=== PATIENT | male | born 1980 | race Caucasian/White ===

== ENCOUNTER 2018-03-13 01:26 | Inpatient (IN) ==
[2018-03-13] MEDS ORDERED: Ondansetron ODT 4 MG TAB.RAPDIS SL ONE (02:08)
[2018-03-13] MEDS ORDERED: OXYCODONE Oral CONC 10 MG/0.5 ML ORAL.SYG SL ONE (02:08)
--- NOTE | 2018-03-13 02:20 | Emergency Department Note ---
Disposition Clinical Impression: Pain of right lower extremity Deep vein thrombosis of lower extremity Qualifiers: Affected thrombotic vein of extremity: other lower extremity vein Chronicity: acute Laterality: right Qualified Code(s): I82.491 - Acute embolism and thrombosis of other specified deep vein of right lower extremity Disposition: Admitted As Inpatient Condition: Good Referrals: Jen Crawley CNP [Primary Care Provider] - Forms: ED Satisfaction Letter Time of Disposition: 03:43 Extremity Problem HPI - General Chief complaint: ED Extremity Problem,Nontraumatic Stated complaint: leg pain/poss DVT Time Seen by Provider: 03/13/18 01:52 Source: patient Limitations: no limitations Nursing Notes Reviewed: Yes Vital Signs Reviewed: Yes - History of Present Illness Pt Subjective Complaint: extremity pain Onset (ago): hour(s) Consistency: constant Injury Location: right, lower extremity Pain Scale: 10 Quality: aching Radiation: none Improves with: nothing Worsens with: range of motion, palpation Associated symptoms: Reports: swelling. Denies: chest pain, shortness of breath , abdominal pain, fever, rash Context: immobilization, recent surgery/procedure - Related Data Home Medications Medication Instructions Recorded Confirmed Diclofenac Sodium 50 mg PO BID 03/11/18 03/11/18 Ibuprofen 800 mg PO BID 03/11/18 03/11/18 Tizanidine HCl 4 mg PO TID PRN 03/11/18 03/11/18 Allergies Allergy/AdvReac Type Severity Reaction Status Date / Time Penicillins [PCN] AdvReac Rash Verified 12/23/17 19:52 All systems ED: reviewed and negative except as stated. Review of Systems: As Per HPI Constitutional: Denies: fever, chills, weakness Eyes: Denies: vision change ENT ED: Denies: throat pain Cardiovascular: Denies: chest pain, palpitations Respiratory: Denies: dyspnea Gastrointestinal: Denies: nausea, vomiting Genitourinary: Denies: dysuria Musculoskeletal: Reports: as per HPI. Denies: back pain, neck pain Integumentary: Denies: rash Neurological: Denies: headache Hematological/Lymphatic: Denies: easy bleeding Allergic/Immunologic: Denies: facial swelling Past Medical History - Past Medical History Medical history: Reports: no medical history Surgical history: Reports: no surgical history Psychiatric history: Reports: no psych history - Social History Smoking Status: Never smoker Smokeless Tobacco Status: Yes Alcohol use: Reports: none Drug use: Reports: none Physical Exam - General Limitations: no limitations General appearance: alert, in no apparent distress - Head Head exam: normocephalic - Eye Eye exam: Present: EOMI - ENT ENT exam: mucous membranes moist - Neck Neck exam: Present: full ROM - Chest Chest inspection: Present: symmetric chest wall rise - Respiratory Respiratory exam: Absent: respiratory distress - Cardiovascular Cardiovascular exam: Present: regular rate - Extremities Exam Extremities exam: Present: normal capillary refill - Expanded Lower Extremity Exam Hip/Pelvis exam: Present: full ROM Upper leg exam: Present: full ROM Knee exam: Present: other (dressing in place clean and dry). Absent: full ROM Lower leg exam: Present: tenderness, swelling, Homans' sign. Absent: erythema Ankle exam: Present: full ROM, swelling. Absent: tenderness Foot/toe exam: Present: full ROM. Absent: tenderness, swelling Neurovascular/Tendon exam: Present: normal 2-point discrimination. Absent: pulse deficit, motor deficit, sensory deficit Gait: not tested/not observed - Back Exam Back exam: Present: full ROM - Neurological Exam Neurological exam: Present: alert - Psychiatric Psychiatric exam: Present: normal affect, normal mood - Skin Skin exam: Present: warm, dry, intact, normal color. Absent: rash, cyanosis, diaphoresis Course Course Narrative: 37-year-old male 2 days status post right ACL repair with Dr. victoria presents with complaint of right lower extremity pain. He describes the pain starting acutely approximately 4 hours prior to arrival. He mentions his postop Percocet helps, but the pain has persisted. He did call his after-hours orthopedic provider number, and spoke with Dr. Davis, who advised patient to come the emergency department for evaluation for possible DVT. Patient's vitals within normal limits. He denies any chest pain, shortness of breath, fevers, history of gout or history of DVT. Patient seen and examined. she was a tenderness over her right calf, mild right lower extremity swelling. Patient does meet high probability pathway per well' s criteria. Analgesics ordered. After hours venous technical specialist was paged, and in route. - Reevaluation(s) Reevaluation #1: After hours venous technical specialist was paged, and in route. Time: 02:23 Reevaluation #2: Per vascular report, preliminary report positive for SVT in lesser saphenous, and DVT and peroneals. I discussed patient with Dr. Tracey who advised for inpatient admission vs outpatient since patient is 2days post op surgery. Will plan for basic labwork, continue pain control, anticoagulant and admission. Time: 03:18 Reevaluation #3: Patient was discussed with and accepted by Dr. Ring, who agreed with heparin bolus and drip. Time: 03:41 Vital Signs Temperature 98.1 F 03/13/18 01:30 Pulse Rate 76 03/13/18 01:30 Respiratory Rate 16 03/13/18 01:30 Blood Pressure 127/90 03/13/18 01:30 O2 Sat by Pulse Oximetry 97 03/13/18 01:30 Temperature 98.1 F 03/13/18 01:30 Pulse Rate 55 03/13/18 03:43 Respiratory Rate 18 03/13/18 03:43 Blood Pressure 108/66 03/13/18 03:43 O2 Sat by Pulse Oximetry 98 03/13/18 03:43 Oxygen Delivery Oxygen Delivery Room Air Extremity Problem, Nontraumati - Lab Data Result diagrams: 03/13/18 03:21 Lab Results 03/13/18 Range/Units 03:21 WBC 11.1 (4.3-11.1) K/mcL RBC 4.44 (4.19-5.50) M/mcL Hgb 14.5 (12.9-16.9) g/dL Hct 41.6 (37.5-50.1) % MCV 93.7 (83.0-100.0) fL MCH 32.7 (28.0-33.3) pg MCHC 34.9 (31.6-35.5) g/dL RDW 13.0 (11.5-14.5) % Plt Count 199 (140-400) K/mcL MPV 11.4 (9.4-12.4) fL Immature Gran % 0.3 (0-4) % Seg Neutrophils % 63.5 % Lymphocytes % 26.3 % Monocytes % 8.4 % Eosinophils % 1.0 % Basophils % 0.5 % Neutrophils # 7.0 (1.6-8.9) K/mcL Lymphocytes # 2.9 (0.6-4.6) K/mcL Monocytes # 0.9 (0.0-1.3) K/mcL Eosinophils # 0.1 (0.0-0.6) K/mcL Basophils # 0.1 (0.0-0.2) K/mcL Attestation Statement - Attestation Attestation: I have personally performed a face to face evaluation on this patient. I have reviewed and agree with the care plan. History and Exam by me shows: Findings consistent with DVT. Good distal pulses. We will start heparin given recent surgery. Patient be admitted for definitive anticoagulation.
[2018-03-13] MEDS ORDERED: *HR* FentaNYL (PF) 100 MCG/2 ML VIAL IVP ONE (03:24)
[2018-03-13] MEDS ORDERED: *HR* Enoxaparin 120 MG/0.8 ML SYRINGE SQ STA (03:27)
[2018-03-13] MEDS ORDERED: *HR* Heparin 5,000 UNIT/ML VIAL IVP ONE (03:31)
[2018-03-13 03:40] LABS: Basophils # 0.1 K/mcL (0.0-0.2); Basophils % 0.5 %; Eosinophils # 0.1 K/mcL (0.0-0.6); Hematocrit 41.6 % (37.5-50.1); Hemoglobin 14.5 g/dL (12.9-16.9); Immature Granulocytes % 0.3 % (0-4); Lymphocytes # 2.9 K/mcL (0.6-4.6); Lymphocytes % 26.3 %; Mean Corpuscular HGB Conc 34.9 g/dL (31.6-35.5); Mean Corpuscular Hemoglobin 32.7 pg (28.0-33.3); Mean Corpuscular Volume 93.7 fL (83.0-100.0); Mean Platelet Volume 11.4 fL (9.4-12.4); Monocytes # 0.9 K/mcL (0.0-1.3); Monocytes % 8.4 %; Platelet Count 199 K/mcL (140-400); Red Blood Count 4.44 M/mcL (4.19-5.50); Segmented Neutrophils % 63.5 %
[2018-03-13 03:47] LABS: Prothrombin Time 11.5 Seconds (9.4-12.1)
[2018-03-13 03:50] LABS: Activated Partial Thrombo Time 29.3 Seconds (26.0-36.0)
[2018-03-13 04:03] LABS: Alanine Aminotransferase 27 Units/L (7-52); Albumin/Globulin Ratio 1.6 (1.1-2.2); Alkaline Phosphatase 51 Units/L (34-104); Aspartate Amino Transferase 20 Units/L (13-39); BUN/Creatinine Ratio 15 (6-26); Bilirubin,Direct 0.1 mg/dL (0.0-0.2); Bilirubin,Indirect 0.2 mg/dL (0.0-1.2); Bilirubin,Total 0.3 mg/dL (0.3-1.0); Blood Urea Nitrogen 16 mg/dL (6-20); Calcium 8.9 mg/dL (8.6-10.3); Carbon Dioxide 28 mEq/L (23-29); Chloride 104 mEq/L (98-107); Globulin 2.5 g/dL (2.4-3.5); Glucose 100 mg/dL (70-105); Osmolality,Calculated 289 (280-300); Sodium 139 mEq/L (136-145); Total Protein 6.5 g/dL (6.4-8.9); eGFR For Non-African Americans > 60 (> 60)
[2018-03-13] MEDS ORDERED: OXYCODONE Oral CONC 10 MG/0.5 ML ORAL.SYG SL SCH (08:00)
[2018-03-13] MEDS: OXYCODONE Oral CONC 10 MG/0.5 ML ORAL.SYG SL PRN ×4 (08:15→21:21)
[2018-03-13] MEDS ORDERED: Naloxone 0.4 MG/ML INJ IVP PRN (09:31)
[2018-03-13] MEDS ORDERED: OXYCODONE Oral CONC 10 MG/0.5 ML ORAL.SYG SL PRN (09:33)
[2018-03-13] MEDS: Heparin 25,000 UNIT/500 ML D5W 25,000 UNIT/500 ML BAG IVC SCH (09:56)
[2018-03-13] MEDS ORDERED: *HR* LORazepam 0.5 MG TABLET PO PRN (12:28)
--- NOTE | 2018-03-13 13:22 | Internal Med History&Physical ---
Date of Encounter: 03/13/18 Time of Encounter: 12:30 Internal Medicine - H&P: HPI Chief complaint: RLE Pain Admitted From: Home Plans for Post Hospital Care: Home History of present illness: Mr. Fitch is a 37 year old male with no significant past medical history who presents for right lower extremity swelling and 10/10 burning pain that started yesterday around noon and became progressively worse. Denies any redness or warmth from site of pain. No chest pain, shortness of breath, abdominal pain, or fever. Has had intermittent nausea but no vomiting. Had ACL repair with Dr Miller of [facility] on 03/11/2018. Reports pain started while at rest and was unable to bear weight. Pain wrapped around his inner leg from his calf to his orta. Pain is worse with movement and improved with rest and post op pain medication. Venous imaging in ER showed acute thrombosis of right peroneal and right lesser saphenous veins. Currently reporting minimal pain as long as not moving and states the swelling has noticeably decreased since arriving to the hospital. Has follow up with ortho scheduled for 03/20/18. Past Med Surg Social Fam HX - Past Medical History Medical history: no medical history Psychiatric history: no psych history - Past Surgical History Surgical History: no surgical history Additional surgical history: right knee sx - Social History Smoking Status: Never smoker Smokeless Tobacco Status: Yes Alcohol use: none Drug use: none Internal Medicine - H&P: Meds Diclofenac Sodium 50 mg PO BID 03/11/18 [History] Ibuprofen 800 mg PO BID 03/11/18 [History] Tizanidine HCl 4 mg PO TID PRN 03/11/18 [History] 3 Allergy/AdvReac Type Severity Reaction Status Date / Time Penicillins [PCN] AdvReac Rash Verified 12/23/17 19:52 All Systems PM: A 10-system review of systems was performed and is negative for pertinent findings except as documented above in the HPI. - Constitutional Vitals: Temp Pulse Resp BP Pulse Ox 97.7 F 63 15 110/70 95 03/13/18 10:01 03/13/18 10:01 03/13/18 10:01 03/13/18 10:01 03/13/18 10:01 Exam: General: Alert and oriented. Skin:Normal color, no rash. ACL repair incision dressings dry and intact. HEENT:EOM, pupils equal, round and reactive. Cardiovascular:Normal S1 & S2, no rubs, murmurs or gallops. No JVD. Pulse regular. Lungs:Normal breath sounds, no wheezes or crackles. Abdomen:Soft, non-tender, no rigidity. Extremities:No deformity or clubbing. Swelling and tenderness noted to right lower extremity. No redness or warmth. Distal PMS intact. Neurological:Normal cognition and motor skills. Pulses:Carotid and radial pulses normal +2. Rest of the physical exam is non contributory. Internal Med - H&P Results - Labs CBC & Chem 7: 03/13/18 03:21 03/13/18 03:21 - Assessment and plan (1) Deep vein thrombosis of lower extremity Current Visit: Yes Status: Acute Assessment and plan: Heparin drip started in ER, continue same. Continuous security monitor. Ortho at bedside during exam, prefers patient be started on Xarelto at discharge. Qualifiers: Affected thrombotic vein of extremity: other lower extremity vein Chronicity: acute Laterality: right Qualified Code(s): I82.491 - Acute embolism and thrombosis of other specified deep vein of right lower extremity (2) Nausea Current Visit: Yes Status: Acute Assessment and plan: Zofran as needed. Encourage oral intake. (3) Pain of right lower extremity Current Visit: Yes Status: Acute Assessment and plan: Pain well controlled. Continue pain regimen ordered by ortho. - Time Spent With Patient Total time spent is greater than 50% in coordination of care (as documented) at patient's floor/unit and/or counseling patient:
[2018-03-13] MEDS: Ondansetron ODT 4 MG TAB.RAPDIS SL PRN (14:06)
[2018-03-13] MEDS: diazePAM 5 MG TABLET PO PRN (21:50)
[2018-03-14] MEDS: Heparin 25,000 UNIT/500 ML D5W 25,000 UNIT/500 ML BAG IVC SCH ×2 (00:43→19:06)
[2018-03-14] MEDS: OXYCODONE Oral CONC 10 MG/0.5 ML ORAL.SYG SL PRN ×4 (02:05→22:35)
[2018-03-14 06:07] LABS: Basophils # 0.1 K/mcL (0.0-0.2); Basophils % 0.5 %; Eosinophils # 0.2 K/mcL (0.0-0.6); Eosinophils % 1.8 %; Hematocrit 44.1 % (37.5-50.1); Immature Granulocytes % 0.4 % (0-4); Lymphocytes # 2.8 K/mcL (0.6-4.6); Lymphocytes % 28.2 %; Mean Corpuscular Hemoglobin 31.9 pg (28.0-33.3); Mean Corpuscular Volume 93.8 fL (83.0-100.0); Mean Platelet Volume 11.3 fL (9.4-12.4); Monocytes # 0.8 K/mcL (0.0-1.3); Monocytes % 8.3 %; Neutrophils # 6.1 K/mcL (1.6-8.9); Platelet Count 217 K/mcL (140-400); Red Cell Distribution Width 12.6 % (11.5-14.5); Segmented Neutrophils % 60.8 %
[2018-03-14] MEDS: Ondansetron ODT 4 MG TAB.RAPDIS SL PRN ×2 (13:32→20:42)
--- NOTE | 2018-03-14 15:29 | Internal Med Progress Note ---
Hospitalist Progress Note - Encounter Date of Encounter: 03/14/18 Time of Encounter: 15:27 - Subjective Interval History: Pt states while he was using rest room he felt nauseous and was dizzy. When he got back in bed he vomited. He denies chest pain or SOB. He denies fever, chills, N/V or diarrhea. He denies using any recreational drugs except for occasional THC. He denies heavy ETOH and denies smoking. - Exam Vitals: Temp Pulse Resp BP Pulse Ox 97.5 F L 71 20 114/78 98 03/14/18 13:43 03/14/18 13:43 03/14/18 13:43 03/14/18 13:43 03/14/18 13:43 Exam: General: Alert and oriented. Skin:Normal color, no rash. ACL repair incision dressings dry and intact. HEENT:EOM, pupils equal, round and reactive. Cardiovascular:Normal S1 & S2, no rubs, murmurs or gallops. No JVD. Pulse regular. Lungs:Normal breath sounds, no wheezes or crackles. Abdomen:Soft, non-tender, no rigidity. Extremities:No deformity or clubbing. Swelling and tenderness noted to right lower extremity. No redness or warmth. Distal PMS intact. Neurological:Normal cognition and motor skills. Pulses:Carotid and radial pulses normal +2. Rest of the physical exam is non contributory. - Assessment and Plan (1) Deep vein thrombosis of lower extremity Current Visit: Yes Status: Acute Assessment and Plan: Pt reporting near syncopal episode while using the rest room. He reports feeling lightheaded and dizzy. He denies passing out or loosing consciousness. In light of recent diagnosis of DVT, will check CTA chest to rule out acute PE. plan to switch to Xarelto prior to discharge. (2) Pain of right lower extremity Current Visit: Yes Status: Acute Assessment and Plan: Due to acute DVT. Continue with prn pain control. (3) Nausea Current Visit: Yes Status: Acute Assessment and Plan: Zofran prn. (4) Lightheadedness Current Visit: Yes Status: Acute Assessment and Plan: Checking CTA chest to rule out PE. Will also send urine for UDS testing. Will monitor closely. DVT Prophylaxis: Heparin. - Time Spent with Patient Total time spent is greater than 50% in coordination of care (as documented) at patient's floor/unit and/or counseling patient: Internal Medicine: Result - Labs CBC & Chem 7: 03/14/18 05:25 03/13/18 03:21 Labs: Short CBC 03/14/18 Range/Units 05:25 WBC 10.0 (4.3-11.1) K/mcL Hgb 15.0 (12.9-16.9) g/dL Hct 44.1 (37.5-50.1) % Plt Count 217 (140-400) K/mcL Neutrophils # 6.1 (1.6-8.9) K/mcL - ABG Interpretation ABG results: PT/INR, D-dimer PT 11.5 Seconds (9.4-12.1) 03/13/18 03:30 Consult Discharge Plan - Plan Referrals: Jen Crawley, [employer] [Primary Care Provider] - Prescriptions: Rivaroxaban [Xarelto] 15 mg PO BID #42 tablet Rivaroxaban [Xarelto] 20 mg PO DAILY #30 tablet (1) Deep vein thrombosis of lower extremity Qualifiers: Affected thrombotic vein of extremity: other lower extremity vein Chronicity : acute Laterality: right Qualified Code(s): I82.491 - Acute embolism and thrombosis of other specified deep vein of right lower extremity
[2018-03-14 15:43] LABS: Amphetamine Screen,Urine Negative ng/mL (Cutoff=1000); Barbiturate Screen,Urine Negative ng/mL (Cutoff=200); Benzodiazepines Screen,Urine Positive ng/mL (Cutoff=200); Cannabinoid Screen,Urine Negative ng/mL (Cutoff = 50); Cocaine Screen,Urine Negative ng/mL (Cutoff= 300); Opiate Screen,Urine Positive ng/mL (Cutoff=300); Phencyclidine Screen,Urine Negative ng/mL (Cutoff=25)
[2018-03-14] MEDS: Isovue-370 500 ML INFUS..BTL IV ONE (15:52)
[2018-03-14] MEDS: *HR* Rivaroxaban 15 MG TABLET PO SCH (16:58)
[2018-03-14] MEDS: diazePAM 5 MG TABLET PO PRN (20:42)
[2018-03-15 07:11] VITALS: BP 112/75
--- NOTE | 2018-03-15 08:37 | Discharge Summary ---
- NOTES TO OUTPATIENT PROVIDER Notes to Outpatient Provider: Follow-up with the orthopedic team as scheduled. Orders not resulted at time of discharge: Pending orders 03/14/18 16:36 EKG [ECG 12 lead ECG] [ECG] Stat Date of Encounter: 03/15/18 Time of Encounter: 08:33 - Discharge Diagnosis (1) Deep vein thrombosis of lower extremity Priority: Primary Status: Acute Qualifiers: Affected thrombotic vein of extremity: other lower extremity vein Chronicity: acute Laterality: right Qualified Code(s): I82.491 - Acute embolism and thrombosis of other specified deep vein of right lower extremity (2) Pain of right lower extremity Priority: Secondary Status: Acute (3) Nausea Priority: Secondary Status: Resolved Hospital course: Mr. Fitch is a 37 year old male past medical history significant for an ACL repair on 03/11/2018 of the right knee. Patient presented to the emergency room complaining of right lower extremity swelling associated with 10 out of 10 burning pain of one-day duration. Her venous duplex ultrasound was done and showed Lower extremity abnormal deep exam: right peroneal vein demonstrates acute thrombosis. Lower extremity abnormal superficial exam: right lesser saphenous vein demonstrates acute thrombosis. Patient is started on anticoagulation. Due to patient complaining of dizziness and shortness of breath a CTA of the chest was done to rule out pulmonary embolism, CT of the chest was negative for pulmonary embolism. Patient acute symptoms have resolved and patient is hemodynamically stable to be discharged home. Educated about oral anticoagulation. Recommended to follow -up with his primary care physician and orthopedic team. - Time Spent with Patient Total time spent providing and/or coordinating discharge services: Less than 30 minutes - Discharge Medications Prescriptions: Rivaroxaban [Xarelto] 15 mg PO BID #42 tablet Rivaroxaban [Xarelto] 20 mg PO DAILY #30 tablet Home Medications: Tizanidine HCl 4 mg PO TID PRN 03/11/18 [History] Ibuprofen 800 mg PO BID PRN #0 03/14/18 [Rx] Rivaroxaban [Xarelto] 15 mg PO BID #42 tablet 03/14/18 [Rx] Rivaroxaban [Xarelto] 20 mg PO DAILY #30 tablet 03/14/18 [Rx] Allergies/Adverse Reactions: 3 Allergy/AdvReac Type Severity Reaction Status Date / Time Penicillins [PCN] AdvReac Rash Verified 12/23/17 19:52 Date of admission: 03/13/18 16:37 Primary care physician: Jen Crawley CNP - Constitutional Vitals: Temp Pulse Resp BP Pulse Ox 98.1 F 66 16 112/75 95 03/15/18 07:07 03/15/18 07:07 03/15/18 07:07 03/15/18 07:07 03/15/18 07:07 Exam: General: Alert and oriented 4. In no acute distress. Skin:Normal color, no rash. Cardiovascular:Normal S1 & S2, no rubs, murmurs or gallops. No JVD. Pulse regular. Lungs: Clear breath sounds to auscultation, no wheezes or crackles. Abdomen:Soft, non-tender, no rigidity. Extremities: No deformity or clubbing. Swelling and tenderness noted to right lower extremity. No redness or warmth. Distal PMS intact. Neurological: Normal cognition and motor skills. Rest of the physical exam is non contributory. - Patient Status Disposition: Home, Self-Care Condition: Good Functional capacity at discharge: independent ambulation Overall status at discharge: patient is back to baseline - Discharge Instructions Follow Up With: Jen Crawley CNP [Primary Care Provider] - - Diet and Activity Activity: resume usual activities as tolerated Diet: advance to your usual diet
[2018-03-15] MEDS: *HR* Rivaroxaban 15 MG TABLET PO SCH (09:37)
== END 2018-03-15 11:00 | disposition home or self-care (01) | DRG 301 ==
LOC: EMEROOARM 01:26 → 3ANU 01:26
PROVIDERS: ADMIT Family Medicine; ATTEND Family Medicine